=== PATIENT | male | born 1950 | race Two or more races ===

== ENCOUNTER 2016-09-24 10:58 | Inpatient (IN) | payer OTHER ==
[~2016-09-24] VITALS: Ht 162.6 cm; Wt 64.8 kg
--- NOTE | ~2016-09-24 | CO ---
Unit #: [id number] #: [id number] Patient: KENYON ALMAZAN [id number] [address] [place], [place] [address] [id number] I MR#: [id number] NAME: KENYON ALMAZAN ROOM: 341 Age: 66 Sex: M Admission Date: 09/24/2016 : 1950 Attending Physician: Micheal Cade M.D. Primary Care Physician: Stephanie Primary Care Physician Requesting Physician: Micheal Cade M.D. Consultation Date: 09/27/2016 CONSULTATION REPORT REASON FOR CONSULTATION Positive blood cultures. HISTORY OF PRESENT ILLNESS This patient is a 66-year-old gentleman with a past medical history of diabetes who presented to the emergency room after he hit his foot three days ago and it began to swell and have redness and pain. As a note - the discussion with patient was via golf course patroller phone. Patient is predominantly English speaking. The patient was doing fine until he felt like he either stepped on something at home or he had hit his foot on something and his right great toe on his foot became increasingly painful. At this point, he had an I and D at bedside per podiatry with some drainage although it doesn't appear that cultures were sent. MRI was obtained of his foot which showed some cellulitis although no deep penetrating ulcer or abscess was found. Also, there was a small focus of signal abnormality within the medial soft tissues corresponding to the area of density which could have represented a foreign body material or less likely a small amount of gas. There was no osteolysis to suggest true osteomyelitis and no evidence of septic arthritis. The patient is currently on vancomycin and Zosyn. We are now being consulted for positive blood cultures that were drawn on September 24 with one of two with MSSA. The patient denies any previous surgical history. He does not have a central line or a PICC line in place, he does not have a pacemaker in place. He states that he had some fevers prior to admission but have since resolved, and also states that his foot has improved since admission. PAST MEDICAL HISTORY Significant for diabetes. PAST SURGICAL HISTORY None. SOCIAL HISTORY He lives with his family. Denies any alcohol or tobacco use. FAMILY HISTORY Noncontributory. ALLERGIES No known allergies. MEDICATIONS Unit #: [id number] #: [id number] Patient: KENYON ALMAZAN Current medications include Zosyn and vancomycin. REVIEW OF SYSTEMS All negative except for those indicated in the HPI. DIAGNOSTIC STUDIES As stated in HPI. LABORATORY: Current laboratory - CRP is 12.9, creatinine is 1.2, sodium 136, potassium 4.4, chloride 107, glucose 177, white cont 12.2, hemoglobin 12.5, sed rate 100. Blood cultures - September 24 blood culture one of two with Staph aureus. PHYSICAL EXAMINATION VITAL SIGNS: Temperature 98.0, heart rate 66, respirations 28, blood pressure 147/84. GENERAL: Awake, alert and oriented. CARDIOVASCULAR: Regular rate. PULMONARY: Clear to auscultation, nonlabored. GI: Soft, nontender, positive bowel sounds. SKIN: Dry and intact. Right foot great toe with erythema and edema and tenderness. No drainage. ASSESSMENT 1. Right great toe cellulitis. 2. MSSA bacteremia. 3. Leukocytosis. 4. Diabetes. PLAN One of two blood cultures with MSSA appears most likely transient. There is no other obvious source for infection. The patient does not have any artificial devices in place and he does not have any other obvious source. At this point, will repeat blood cultures. Will also check a 2D echo just to rule out for possible endocarditis although doubt that patient has. Will continue vancomycin and Zosyn to broadly cover for his foot cellulitis as well as for the bacteremia. Will discuss plan with and have further recommendations per Dr. Sahu. Dictated by... Mary Mckeon APRN for Bernie Zamora TD: 09/28/2016 09:00 JOB #: [id number] Unit #: [id number] #: [id number] Patient: KENYON ALMAZAN CONSULTATION REPORT Page 1 of 1 X X CONSULTATION REPORT
--- NOTE | ~2016-09-24 | HP ---
Unit #: [id number] #: [id number] Patient: KENYON ALMAZAN [id number] [address] [place], [place] [address] [id number] I MR#: [id number] NAME: KENYON ALMAZAN ROOM: 46787 Age: 66 Sex: M Admission Date: 09/24/2016 : 1950 Attending Physician: Indira Rodriguez M.D. Primary Care Physician: Primary Care Physician No HISTORY AND PHYSICAL CHIEF COMPLAINT Right lower extremity injury HISTORY OF PRESENT ILLNESS The patient is a 66-year-old male with past medical history of diabetes who presented to the emergency department for evaluation of the above. The patient states that he was in his usual state of health until September 22, 2016, when he went outside without shoes and thinks that he stepped on something. He subsequently had a wound involving the plantar surface of the right great toe. He states that it has become increasingly red. He denies it being particularly painful. He states that it has been somewhat swollen. He denies any fever. No cough or cold symptoms. No chest pain or difficulty breathing. He states that his blood sugar is typically in the 100s, but was 303 within the past week. In the emergency department, an x-ray was done and showed possible retained foreign body. White blood cell count is 18/5, lactic acid 2. He was given Vancomycin and Zosyn in the emergency department as well as 2 liters of normal saline. He is being admitted to [facility] for evaluation and further treatment. PAST MEDICAL HISTORY 1. The patient denies hospitalizations. 2. Diabetes. PAST SURGICAL HISTORY None. SOCIAL HISTORY The patient lives with family. There is no tobacco or alcohol use. FAMILY HISTORY Notable for their being no family history of diabetes. ALLERGIES No known allergies. HOME MEDICATIONS Metformin 1000 mg daily REVIEW OF SYSTEMS A complete review of systems is negative except as indicated in the HPI. The patient states that about 4-5 days ago he had some fever and chills as well as body aches, but those resolved. Unit #: [id number] #: [id number] Patient: KENYON ALMAZAN DIAGNOSTIC STUDIES IMAGING: Right foot x-ray shows possible foreign body in the soft tissue surrounding the DIP joint of the first digit. It is only seen on one view and there is concern for possible artifact. LABORATORY: CRP is 12.9. Basic metabolic panel notable for a glucose of 185, BUN and creatinine 26 and 1.4 respectively. Complete blood count notable for white blood cell count of 18.5, lactic acid is 2. PHYSICAL EXAMINATION VITAL SIGNS: Temperature 97.8, pulse 86, respirations 16, blood pressure 155/86. Oxygen saturation is 98% on room air. GENERAL: The patient is a very pleasant male in no acute distress. HEENT: The head is atraumatic. Mucous membranes are moist. NECK: Supple. Trachea is midline. CARDIOVASCULAR: Regular rate and rhythm. LUNGS: Clear to auscultation bilaterally with no increased work of breathing. ABDOMEN: Soft, nontender, with bowel sounds present in all four quadrants. EXTREMITIES: There is no pedal edema. NEUROLOGIC: The patient is awake and alert. He follows commands. PSYCHIATRIC: Mood and affect are normal. The patient is cooperative. SKIN: The right great toe on the plantar surface demonstrates an area of ulceration with erythema, warmth and tenderness to palpation involving the toe circumferentially. There is a 2+ dorsalis pedis pulse. Sensation is subjectively intact. ASSESSMENT The patient is a 66-year-old male with: 1. Diabetic toe wound. The patient received Vancomycin and Zosyn in the emergency department. 2. Leukocytosis with an initial lactic acid of 2. 3. Acute kidney injury. The patient's creatinine is 1.4 with no baseline for comparison. PLAN 1. Admit to Medical-Surgical. 2. Healthy heart constant carbohydrate diet. 3. Nothing by mouth after midnight for possible surgical intervention. 4. Blood cultures x2. 5. Wound culture and sensitivity. 6. Vancomycin IV and Zosyn IV pending further workup. 7. Consult podiatry regarding toe wound and possible foreign body. 8. Hemoglobin A1c. 9. Low-dose insulin sliding scale with AccuChek. 10. Sepsis protocol with repeat lactic acid. 11. Normal saline at 125 mL/hour. 12. Tylenol p.r.n. 13. Zofran p.r.n. 14. Repeat labs in the morning. 15. Additional workup and consultants based on above. History is obtained via litigation manager number [id number] due to the patient being Irish-speaking only. Unit #: [id number] #: [id number] Patient: KENYON ALMAZAN Dictated by Bernie Gloria/tammie TD: 09/24/2016 16:55 JOB #: [id number] HISTORY AND PHYSICAL Page 1 of 1 X Indira Rodriguez MD HISTORY AND PHYSICAL
--- NOTE | ~2016-09-24 | DS ---
Unit #: [id number] #: [id number] Patient: KENYON ALMAZAN [id number] [address] [place], [place] [address] [id number] I MR#: [id number] NAME: KENYON ALMAZAN ROOM: 341 Age: 66 Sex: M Admission Date: 09/24/2016 : 1950 Discharge Date: 09/27/2016 Attending Physician: Micheal Cade M.D. Primary Care Physician: No Primary Care Physician DISCHARGE SUMMARY DISCHARGE DIAGNOSES 1. Diabetic toe wound. 2. Acute kidney injury, present on admission. 3. Right hallux cellulitis. HOSPITAL COURSE The patient is a 66-year-old male who presented to [facility] Emergency Department secondary to right lower extremity injury. Apparently the patient went outside without his shoes on September 22 and noticed a wound on his right great toe. It became increasingly red and swollen. As a result, he came to the emergency department where he had an x-ray that showed a 3-mm retained opaque foreign body in the medial soft tissue adjacent to the DIP joint of the first digit. Podiatry was consulted, and the patient was seen. They performed a bedside I and D with only a small amount of purulent drainage. Since that time, the patient has been undergoing Betadine gauze dressings. The patient then did undergo MRI, which failed to reveal deep penetrating ulcer or abscess. There was also no sign of osteomyelitis. MRI was also noted to have a small focus of signal abnormality within the medial soft tissue, and podiatry felt that this was secondary to the I and D rather than a foreign body and/or gas formation. At this time podiatry has stated the patient is safe and ready for discharge from a podiatric standpoint. The patient states that he feels well and is also wanting discharge. He is to discharge home with daily wound care and to follow up with podiatry. DISCHARGE MEDICATIONS 1. Glucophage 1,000 mg p.o. daily. 2. Augmentin 875 mg 1 p.o. b.i.d. x11 more days. FOLLOWUP The patient should follow up with podiatry on 10/06 at 9 a.m. Dictated by... Albert Granados M.D. JIMMY/david TD: 09/28/2016 14:47 JOB #: [id number] Unit #: [id number] #: [id number] Patient: NORAHKENYON DISCHARGE SUMMARY Page 1 of 1 X Albert Granados MD X DISCHARGE SUMMARY
--- NOTE | ~2016-09-24 | MR59 ---
[facility] A Service of [facility] & [facility] RADIOLOGY TEXT RESULTS PATIENT: KENYON ALMAZAN LOCATION: C3A 341-01 : [birth year] UNIT #: [id number] AGE: [address]: KYAW MAYES V SEX: M ORDER DR: [id number] [facility] [address]. [place], [place] [address] [id number] I MR#: [id number] Acc #: [id number] NAME: KENYON ALMAZAN : 1950 SEX: M STUDY DATE/TIME: 09/26/2016 10:22 UNIT: [address] ROOM: 341 STUDY DESCRIPTION: MR Foot WWo Contrast Rt Attending Physician: Kyaw Mayes M.D. Ordering Physician: Indira Rodriguez M.D. Primary Care Physician: Primary Care Physician No MRI CENTER REPORT This report is preliminary unless electronic signature is present. EXAM MRI of the right foot with and without contrast HISTORY 66-year-old male with diabetic wound great toe. Evaluate for abscess. Patient states stepped on something, red, swollen great toe. COMPARISON Right foot films 09/24/2016 FINDINGS Multiplanar, multiecho imaging was performed of the forefoot utilizing a high-field magnet and dedicated protocol. Study is slightly degraded due to motion artifact, but felt to be diagnostic. Bone structure and alignment appears normal. There is mild increased T2 marrow signal within the proximal and distal phalanx of the great toe. This is a nonspecific finding and may be reactive due to overlying soft tissue swelling and cellulitis, with underlying osteomyelitis considered less likely. There is also some enhancement of the marrow postcontrast, and this also can be seen with early osteomyelitis. No cortical destruction is identified and no T1 marrow replacement is identified, which are typically more definitive for underlying osteomyelitis. No evidence of a septic arthritis. There is circumferential soft tissue swelling about the toe, with a small wound along the medial plantar aspect of the great toe at the level of the interphalangeal joint. This may correspond to the area of density noted on the radiographs and could represent a small amount of foreign body or debris. This also shows significant enhancement in the postcontrast. No penetrating ulcer identified. No drainable fluid collection or abscess. A small amount of fluid is seen along the extensor hallucis longus tendon. Generalized soft tissue swelling and edema noted within the forefoot, but this does not enhance postcontrast and may be related to underlying neurovascular disease. Intrinsic foot musculature appears normal. STS. [facility] A Service of [facility] RADIOLOGY TEXT RESULTS PATIENT: KENYON ALMAZAN LOCATION: C3A 341-01 : [birth year] UNIT #: [id number] AGE: [address]: KYAW MAYES V SEX: M ORDER DR: IMPRESSION Circumferential soft tissue swelling about the great toe with enhancement postcontrast compatible with cellulitis. No deep penetrating ulcer or abscess identified. There is a small focus of signal abnormality within the medial soft tissues corresponding to the area of density noted on the radiographs and could represent foreign body material or, less likely, a small amount of gas. There is mild marrow edema within the proximal and distal phalanx of the great toe probably represents reactive marrow changes, as the more specific finding of T1 marrow replacement or osteolysis is not identified to suggest true osteomyelitis. No evidence of septic arthritis. Generalized soft tissue swelling and edema within the forefoot most likely related to chronic neurovascular disease. Dictated by... Alysa Ricks M.D. THIS IS AN ELECTRONICALLY VERIFIED REPORT Alysa Ricks M.D. at 09/26/2016 10:02 PM GISSEL/tierra TD: 09/26/2016 16:02 JOB #: [id number] MRI CENTER REPORT Page 1 of 1 COPY
--- NOTE | ~2016-09-24 | CR127 ---
[facility] A Service of [facility] RADIOLOGY TEXT RESULTS PATIENT: KENYON ALMAZAN LOCATION: [facility] 341-01 : [birth year] UNIT #: [id number] AGE: [address]: Indira Rodriguez MD SEX: M ORDER DR: [id number] [place] [id number] [facility] [address]. [place], [place] [address] [id number] E MR#: [id number] Acc #: [id number] NAME: KENYON ALMAZAN : 1950 SEX: M STUDY DATE/TIME: 09/24/2016 12:07 UNIT: [facility] ROOM: STUDY DESCRIPTION: CR Foot Complete Min 3 View Rt Attending Physician: Rod Sofia M.D. Ordering Physician: Rod Sofia M.D. Primary Care Physician: No Primary Care Physician MEDICAL IMAGING REPORT This report is preliminary unless electronic signature is present EXAM Right foot, 09/24/2016. INDICATIONS 66-year-old male with pain in a great toe and redness 3 days. Stepped on something sharp. TECHNIQUE Three views of the right foot. COMPARISON No comparisons. FINDINGS No acute fracture. No focal erosive change. There are atherosclerotic calcifications suggestive of underlying diabetes. The bones are osteopenic. On the frontal projection, there is a 3 mm density just medial to the DIP joint projecting over the medial soft tissues. This is not clearly demonstrated on the orthogonal views and may represent an artifact, although, a retained opaque foreign body could present similarly. Suggest correlation with patient physical exam. There is a small soft tissue ulceration on the plantar aspect of the foot on the lateral projection in the region of the great toe. IMPRESSION 1. No acute fracture. Potential 3 mm retained opaque foreign body in the medial soft tissues adjacent to the DIP joint first digit although it is only seen on one projection and could be artifactual. Correlate with physical exam. 2. There is a soft tissue ulcer or laceration involving the plantar soft tissues of the first digit on the lateral view. [facility] A Service [facility] RADIOLOGY TEXT RESULTS PATIENT: KENYON ALMAZAN LOCATION: [facility] 341-01 : [birth year] UNIT #: [id number] AGE: [address]: Indira Rodriguez MD SEX: M ORDER DR: Dictated by... Tito Ruiz M.D. THIS IS AN ELECTRONICALLY VERIFIED REPORT Tito Ruiz M.D. at 09/24/2016 5:17 PM Evita TD: 09/24/2016 15:27 JOB #: [id number] MEDICAL IMAGING REPORT Page 1 of 1 COPY
[2016-09-24 12:55] LABS: BASOPHIL# 0.1 X10e3 (0-0.3); BASOPHIL% 0.7 % (0-2.5); EOSINOPHIL# 0.7 X10e3 (0-0.7); EOSINOPHIL% 3.7 % (0.0-7.0); HEMATOCRIT 38.5 % (38.0-50.0); LYMPHOCYTE# 2.4 X10e3 (1.0-3.5); LYMPHOCYTE% 12.9 % (17.0-45.0); MEAN CORPUSCULAR HEMOGLOBIN 30.5 PG (28-34); MEAN CORPUSCULAR HGB CONC 33.9 g/dL (30-36); MEAN PLATELET VOLUME 7.8 FL (6.5-11.5); MONOCYTE% 10.6 % (3.0-12.0); NEUTROPHIL# 13.3 X10e3 (1.5-7.1); NEUTROPHIL% 72.1 % (40-75); PLATELET COUNT 400 X10e3 (140-420); RED BLOOD COUNT 4.28 X10e (3.90-5.60); WHITE BLOOD COUNT 18.5 X10e3 (4.0-10.5)
[2016-09-24 12:56] LABS: DIFF IND YES
[2016-09-24 13:11] LABS: PLATELET ESTIMATE NORMAL (NORMAL)
[2016-09-24 13:12] LABS: ANISOCYTOSIS SL
[2016-09-24 13:21] LABS: BUN/CREATININE RATIO 18.57; CALCIUM SERUM 9.1 mg/dL (8.4-10.2); CREATININE SERUM 1.4 mg/dL (0.6-1.4); GLOM FILT RATE Estimated 51.6 mL/min (>60); POTASSIUM 4.7 mmol/L (3.5-5.1)
[2016-09-24] MEDS ORDERED: METFORMIN PO (14:11)
[2016-09-25 05:34] LABS: BASOPHIL# 0.2 X10e3 (0-0.3); EOSINOPHIL# 0.9 X10e3 (0-0.7); EOSINOPHIL% 5.3 % (0.0-7.0); HEMOGLOBIN 12.5 gm/dL (13.0-16.0); LYMPHOCYTE# 2.9 X10e3 (1.0-3.5); LYMPHOCYTE% 16.8 % (17.0-45.0); MEAN CELL VOLUME 89.8 FL (83-96); MEAN CORPUSCULAR HEMOGLOBIN 29.5 PG (28-34); MEAN CORPUSCULAR HGB CONC 32.9 g/dL (30-36); MEAN PLATELET VOLUME 7.3 FL (6.5-11.5); MONOCYTE# 2.1 X10e3 (0-1.0); MONOCYTE% 11.8 % (3.0-12.0); NEUTROPHIL# 11.4 X10e3 (1.5-7.1); NEUTROPHIL% 65.1 % (40-75); PLATELET COUNT 385 X10e3 (140-420); RED BLOOD COUNT 4.23 X10e (3.90-5.60); RED CELL DISTRIBUTION WIDTH 13.7 % (11.0-15.5); WHITE BLOOD COUNT 17.5 X10e3 (4.0-10.5)
[2016-09-25 05:35] LABS: DIFF IND NO
[2016-09-25 06:03] LABS: ALBUMIN SERUM 2.9 g/dL (3.5-5.0); BILIRUBIN,TOTAL 0.5 mg/dL (0.2-2.0); BUN/CREATININE RATIO 15.83; CALCIUM SERUM 8.4 mg/dL (8.4-10.2); CREATININE SERUM 1.2 mg/dL (0.6-1.4); GLOM FILT RATE Estimated 62.2 mL/min (>60); POTASSIUM 4.3 mmol/L (3.5-5.1); PROTEIN TOTAL SERUM 7.1 g/dL (6.0-8.3)
[2016-09-26 06:52] LABS: BUN/CREATININE RATIO 10.83; CALCIUM SERUM 8.6 mg/dL (8.4-10.2); CREATININE SERUM 1.2 mg/dL (0.6-1.4); GLOM FILT RATE Estimated 62.2 mL/min (>60); POTASSIUM 4.7 mmol/L (3.5-5.1)
[2016-09-26 08:38] LABS: HEMATOCRIT 36.7 % (38.0-50.0); HEMOGLOBIN 12.2 gm/dL (13.0-16.0); MEAN CELL VOLUME 89.7 FL (83-96); MEAN CORPUSCULAR HEMOGLOBIN 29.8 PG (28-34); MEAN CORPUSCULAR HGB CONC 33.3 g/dL (30-36); MEAN PLATELET VOLUME 7.7 FL (6.5-11.5); RED BLOOD COUNT 4.09 X10e (3.90-5.60); RED CELL DISTRIBUTION WIDTH 13.6 % (11.0-15.5); WHITE BLOOD COUNT 15.8 X10e3 (4.0-10.5)
[2016-09-27 05:34] LABS: HEMATOCRIT 37.9 % (38.0-50.0); HEMOGLOBIN 12.5 gm/dL (13.0-16.0); MEAN CELL VOLUME 89.3 FL (83-96); MEAN CORPUSCULAR HEMOGLOBIN 29.4 PG (28-34); MEAN PLATELET VOLUME 7.4 FL (6.5-11.5); RED BLOOD COUNT 4.24 X10e (3.90-5.60); RED CELL DISTRIBUTION WIDTH 13.5 % (11.0-15.5); WHITE BLOOD COUNT 12.2 X10e3 (4.0-10.5)
[2016-09-27 05:59] LABS: BUN/CREATININE RATIO 8.33; CALCIUM SERUM 8.8 mg/dL (8.4-10.2); CREATININE SERUM 1.2 mg/dL (0.6-1.4); GLOM FILT RATE Estimated 62.2 mL/min (>60); POTASSIUM 4.4 mmol/L (3.5-5.1)
[2016-09-27] MEDS ORDERED: AUGMENTIN PO (13:12)
== END 2016-09-27 17:43 | disposition home or self-care (01) | DRG 639 ==
LOC: CED 10:58 → CEDOF 15:30 → C3A PCU 15:30 → CEDOF 16:17 → CED 16:17 → CEDOF 17:01 → C3A PCU 17:01
PROVIDERS: Emergency Medicine; Family Medicine; Internal Medicine
PROC: 0H9MXZZ Drainage of Right Foot Skin, External Approach (ICD-10-PCS; principal; 2016-09-25)
DX: E11.628 Type 2 diabetes mellitus with other skin complications (principal); N17.9 Acute kidney failure, unspecified; B95.61 Methicillin susceptible Staphylococcus aureus infection as the cause of diseases classified elsewhere; L03.031 Cellulitis of right toe; Z79.84 Long term (current) use of oral hypoglycemic drugs
CPT/HCPCS: 36415; 73630; 73720; 80048; 80053; 80202; 82947; 83036; 83605; 85025; 85027; 85652; 86140; 87040; 87077; 87186; 96361; 96365; 96366; 96367; 96375; 99285; A9577; J1815; J1885; J2543; J3370

== ENCOUNTER 2016-10-03 09:16 | Observation (INO) | payer OTHER ==
[~2016-10-03] VITALS: Ht 157.5 cm; Wt 64.0 kg
--- NOTE | ~2016-10-03 | A ---
[facility] Nutrition Therapy DATE: 10/04/16 Patient: KENYON ALMAZAN Physician: REJI Address: [address] [place] [address] Room/Bed: [address] [place] [address], Zip: [place] [address] Admit Date: 10/03/16 Date of : [birth year] Height: 5 2 Weight: 141 64 NUTRITIONAL ASSESSMENT: REASON: Patient request for diabetes diet education Admitting dx: 66 y/o male admitted with R foot abscess PMH: DM Anthropometrics: Ht: 62", Wt: 141 lbs, BMI: 25 (overweight) Labs: glucose 174, POC 170-233, A1C 9.2 Meds: low SSI Assessment: Chart reviewed, events noted. RN called RD office this afternoon stating pt has requested DM education, however he only speaks Austrian and cannot read. RD provided verbal consistent carb diet education via manager mental health phone and answered all of the patient's questions. Patient showed moderate understanding. He is going to be discharged today. He could benefit from outpatient diabetes classes. Recommendations: Continue consistent carb diet, encourage diet education compliance as provided. Consider setting patient up for outpatient diet counseling. Respectfully, Chey Singh RD, [facility] cc: client file
--- NOTE | ~2016-10-03 | CR127 ---
[facility] A Service of [facility] & [facility] RADIOLOGY TEXT RESULTS PATIENT: KENYON ALMAZAN LOCATION: [facility] 327- : [birth year] UNIT #: [id number] AGE: [address]: KINA MAYESUJ V SEX: M ORDER DR: [id number] [facility] [address]. [place], [place] [address] [id number] I MR#: [id number] Acc #: [id number] NAME: KENYON ALMAZAN : 1950 SEX: M STUDY DATE/TIME: 10/03/2016 10:26 UNIT: [address] ROOM: [facility] STUDY DESCRIPTION: CR Foot Complete Min 3 View Rt Attending Physician: Ramiro Spence M.D. Ordering Physician: Den Finnegan M.D. Primary Care Physician: Primary Care Physician No MEDICAL IMAGING REPORT This report is preliminary unless electronic signature is present EXAM Foot 3 views right HISTORY Swelling, initial hospitalization 7 days ago and symptoms have become worse, right first digit pain, swelling and abscess. COMMENT Three views of the right foot are reviewed. There is comparison study from 09/24/2016. There is soft tissue swelling associated with the first digit, which was present previously as well, best appreciated at the plantar surface. On previous study, there was an ossific density at the medial aspect of the interphalangeal joint, which is no longer seen. There is no marina bone destruction. Please refer to the MRI result from 09/26/2016. There is no plain film evidence for osteomyelitis, fracture or foreign body. IMPRESSION Again, soft tissue swelling associated with the first digit of the right foot. This would be consistent with abscess or cellulitis. See the MRI report from 09/26/2016. There is no plain film evidence for osteomyelitis or radiopaque foreign body seen. Dictated by... Paty Montemayor M.D. THIS IS AN ELECTRONICALLY VERIFIED REPORT Paty Montemayor M.D. at 10/04/2016 4:52 PM [facility] TD: 10/04/2016 00:48 [facility] A Service of [facility] & [facility] RADIOLOGY TEXT RESULTS PATIENT: KENYON ALMAZAN LOCATION: [facility] 327-01 : [birth year] UNIT #: [id number] AGE: [address]: KYAW MAYES V SEX: M ORDER DR: JOB #: [id number] MEDICAL IMAGING REPORT Page 1 of 1 COPY
--- NOTE | ~2016-10-03 | DS ---
Unit #: [id number] #: [id number] Patient: KENYON ALMAZAN [id number] [address] [place], [place] [address] [id number] I MR#: [id number] NAME: KENYON ALMAZAN ROOM: 327 Age: 66 Sex: M Admission Date: 10/03/2016 : 1950 Discharge Date: 10/04/2016 Attending Physician: Micheal Cade M.D. Primary Care Physician: Stephanie Primary Care Physician DISCHARGE SUMMARY DISCHARGE DIAGNOSES 1. Right first toe cellulitis and abscess. 2. Diabetes mellitus. HOSPITAL COURSE The patient is a 66-year-old man with history significant for diabetes mellitus who initially had presented on September 27 with swelling and redness of the right toe, and he underwent I and D and was prescribed outpatient Augmentin. The patient returned to the emergency room on 10/03/2016 with again swelling and redness of the right toe. The patient was started on IV clindamycin. The swelling and redness of the right toe improved. The patient will be discharged on outpatient clindamycin 300 mg p.o. q.8 hours for 7 days, as well as Florastor 2 caps twice daily. He has a followup appointment as an outpatient with the podiatry clinic, Dr. Pablo Piper, on Tuesday at 9 a.m. at [facility]. DISCHARGE MEDICATIONS 1. Metformin 1,000 mg p.o. daily. 2. Clindamycin 300 mg p.o. q.8 hours for 7 days. 3. Florastor 2 caps p.o. b.i.d. DISCHARGE INSTRUCTIONS The patient is to follow up as an outpatient with [facility] clinic podiatry, Dr. Tom Piper, on Tuesday 9 a.m. October 06, 2016. Dictated by... Bernie Sellers/david TD: 10/05/2016 10:10 JOB #: [id number] Unit #: [id number] #: [id number] Patient: KENYON ALMAZAN DISCHARGE SUMMARY Page 1 of 1 X X DISCHARGE SUMMARY
--- NOTE | ~2016-10-03 | HP ---
Unit #: [id number] #: [id number] Patient: KENYON ALMAZAN [id number] [address] [place], [place] [address] [id number] MR#: [id number] NAME: KENYON ALMAZAN ROOM: 327 Age: 66 Sex: M Admission Date: 10/03/2016 : 1950 Attending Physician: Dario Spence M.D. HISTORY AND PHYSICAL CHIEF COMPLAINT Wound on the right foot. HISTORY OF PRESENT ILLNESS The patient is a 60-year-old male with a history of diabetes who was recently discharged from the hospital on September 27 with cellulitis and toe wound. The patient had an MRI of the foot and had I and D of the wound by Podiatry. The patient was discharged home on Augmentin. The patient continued with the antibiotics; however, the patient presented again concerning for swelling and pain. The patient had a repeat x-ray that showed that patient had an abscess and soft tissue swelling. No foreign body, opaque body, or bony involvement. The patient is being admitted for the above reasons. Patient denies any fever, denies any chills, nausea, or vomiting, and denies any more trauma to the foot. PAST MEDICAL HISTORY Diabetes. PAST SURGICAL HISTORY I and D of the right foot. SOCIAL HISTORY The patient lives with family. There is no tobacco, alcohol, or any illicit drug abuse. FAMILY HISTORY Diabetes. ALLERGIES No known drug allergies. HOME MEDICATIONS Metformin. REVIEW OF SYSTEMS Positive for swelling, positive for tenderness, and positive for weakness. Denies any chest pain, denies nausea or vomiting, and denies any headaches. All other systems have been reviewed and are negative. PHYSICAL EXAMINATION GENERAL: Patient is lying in bed not in acute distress. VITAL SIGNS: Temperature 98.4, pulse 80, respiratory rate 16, blood pressure 167/100, and saturating 98% on room air. HEENT: Head atraumatic, normocephalic. Pupils equal, round, and reactive Unit #: [id number] #: [id number] Patient: KENYON ALMAZAN to light and accommodation. Extraocular movements are intact. NECK: Supple. LUNGS: Decreased air entry at the bases. HEART: Regular rate and rhythm. ABDOMEN: Soft. Positive bowel sounds. EXTREMITIES: Patient has a right (1) toe with swelling, tenderness, positive for crepitus, and less erythematic. DIAGNOSTIC STUDIES LABORATORY: WBC 15.2, hemoglobin 13.7, hematocrit 41, and platelets 570,000. Sodium 136, potassium 4.8, chloride 102, bicarb 25, glucose 176, BUN 17, creatinine 1.2, AST 15, ALT 28, alkaline phosphatase 121, and albumin 3.8. Repeat blood cultures from September 30 and remain negative. ASSESSMENT 1. Right diabetic toe wound. 2. Diabetes. PLAN Admit the patient to observation. Patient will have a Podiatry consultation for drainage of the abscess. Continue with clindamycin 300 mg q.8, continue with low-dose sliding scale and Accu-Cheks, check inflammatory markers, and further recommendations will follow. Dictated by Bernie Jara TD: 10/03/2016 17:36 JOB #: [id number] HISTORY AND PHYSICAL Page 1 of 1 X DARIO SPENCE MD X HISTORY AND PHYSICAL
[~2016-10-03 09:16] MED LIST: AUGMENTIN PO; METFORMIN PO
[2016-10-03 10:55] LABS: BASOPHIL# 0.1 X10e3 (0-0.3); BASOPHIL% 0.9 % (0-2.5); DIFF IND YES; EOSINOPHIL# 1.1 X10e3 (0-0.7); EOSINOPHIL% 7.3 % (0.0-7.0); HEMOGLOBIN 13.7 gm/dL (13.0-16.0); LYMPHOCYTE# 3.3 X10e3 (1.0-3.5); MEAN CELL VOLUME 88.9 FL (83-96); MEAN CORPUSCULAR HEMOGLOBIN 29.8 PG (28-34); MEAN CORPUSCULAR HGB CONC 33.5 g/dL (30-36); MEAN PLATELET VOLUME 7.1 FL (6.5-11.5); MONOCYTE# 1.8 X10e3 (0-1.0); MONOCYTE% 11.6 % (3.0-12.0); NEUTROPHIL# 8.8 X10e3 (1.5-7.1); NEUTROPHIL% 58.2 % (40-75); PLATELET COUNT 570 X10e3 (140-420); RED BLOOD COUNT 4.61 X10e (3.90-5.60); RED CELL DISTRIBUTION WIDTH 14.2 % (11.0-15.5); WHITE BLOOD COUNT 15.2 X10e3 (4.0-10.5)
[2016-10-03 11:24] LABS: PLATELET ESTIMATE INCREASED (NORMAL)
[2016-10-03 11:32] LABS: ALBUMIN SERUM 3.8 g/dL (3.5-5.0); BILIRUBIN, DIRECT 0.1 mg/dL (0.0-0.2); BILIRUBIN,TOTAL 0.1 mg/dL (0.2-2.0); BUN/CREATININE RATIO 14.16; CALCIUM SERUM 9.6 mg/dL (8.4-10.2); CREATININE SERUM 1.2 mg/dL (0.6-1.4); GLOM FILT RATE Estimated 62.2 mL/min (>60); POTASSIUM 4.8 mmol/L (3.5-5.1); PROTEIN TOTAL SERUM 8.4 g/dL (6.0-8.3)
[2016-10-04 05:15] LABS: BASOPHIL# 0.2 X10e3 (0-0.3); DIFF IND NO; EOSINOPHIL# 0.8 X10e3 (0-0.7); EOSINOPHIL% 5.5 % (0.0-7.0); HEMATOCRIT 39.7 % (38.0-50.0); HEMOGLOBIN 13.1 gm/dL (13.0-16.0); LYMPHOCYTE# 2.9 X10e3 (1.0-3.5); LYMPHOCYTE% 19.5 % (17.0-45.0); MEAN CELL VOLUME 88.7 FL (83-96); MEAN CORPUSCULAR HEMOGLOBIN 29.2 PG (28-34); MEAN CORPUSCULAR HGB CONC 32.9 g/dL (30-36); MEAN PLATELET VOLUME 7.7 FL (6.5-11.5); MONOCYTE# 1.7 X10e3 (0-1.0); MONOCYTE% 11.6 % (3.0-12.0); NEUTROPHIL# 9.4 X10e3 (1.5-7.1); NEUTROPHIL% 62.4 % (40-75); PLATELET COUNT 538 X10e3 (140-420); RED BLOOD COUNT 4.48 X10e (3.90-5.60)
[2016-10-04 05:53] LABS: BUN/CREATININE RATIO 16.92; CALCIUM SERUM 9.4 mg/dL (8.4-10.2); CREATININE SERUM 1.3 mg/dL (0.6-1.4); GLOM FILT RATE Estimated 56.5 mL/min (>60); POTASSIUM 4.7 mmol/L (3.5-5.1)
[2016-10-04] MEDS ORDERED: FLORASTORKIDS250 MG PO (13:23)
[2016-10-04] MEDS ORDERED: CLINDAMYCIN HC300 MG PO (13:23)
== END 2016-10-04 16:19 | disposition home or self-care (01) | DRG 603 ==
LOC: CED 09:16 → CEDOF 12:23 → C3A PCU 12:38 → CED 12:38 → CEDOF 12:38 → C3A PCU 14:12 → CEDOF 14:12 → C3A PCU 14:12
PROVIDERS: Emergency Medicine; Internal Medicine
DX: L03.031 Cellulitis of right toe (principal); L02.611 Cutaneous abscess of right foot; E11.9 Type 2 diabetes mellitus without complications; Z79.84 Long term (current) use of oral hypoglycemic drugs; Z79.899 Other long term (current) drug therapy
CPT/HCPCS: 36415; 73630; 80048; 80076; 82947; 83036; 85025; 85652; 87040; 87070; 87077; 87186; 87205; 96365; 96367; 96372; 96376; 99284; G0378; J1650; J1815; J3370